=== PATIENT | male | born 1980 | race Hispanic/Latino ===

== ENCOUNTER 2024-12-18 07:36 | Emergency (ER) | payer SELFPAY ==
[2024-12-18 09:08] LABS: Specific Gravity > 1.030 (1.005-1.030); Sqamous Epithelial None Seen /HPF (None Seen); Urine Bacteria None Seen /HPF (<20); Urine Bilirubin NEGATIVE (Negative); Urine Blood Negative (Negative); Urine Clarity Clear (Clear); Urine Color Yellow (Yellow); Urine Culture Reflex Order NOT NEEDED; Urine Glucose NEGATIVE (Negative); Urine Ketones NEGATIVE (Negative); Urine Micro Reflex YN NO BILL MICROSCOPIC; Urine Mucus Slight /HPF (None Seen); Urine Nitrite NEGATIVE (Negative); Urine Protein TRACE (Negative); Urine RBC <5 /HPF (None Seen); Urine Urobilinogen 1+ (Normal); Urine WBC <5 /HPF (<5); Urine pH 6.5 (5.0-7.0)
[2024-12-18 09:44] LABS: Absolute Eosinophils 0.2 K/uL (0-0.5); Absolute Lymphocytes (CBC) 1.7 K/uL (0.7-4.9); Absolute Monocytes 0.4 K/uL (0.1-1.3); Absolute Neutrophil 3.3 K/uL (1.8-8.0); Basophils % 0.4 % (0-1.3); Eosinophils % 3.8 % (0-4.4); Hemoglobin 13.8 g/dL (13.6-17.9); Lymphocytes % 30.8 % (15.3-44.8); MCH 30.9 pg (27.0-35.0); MCHC 33.5 g/dL (32.0-36.0); MCV 92.1 fL (80-100); MPV 6.3 fL (7.6-11.3); Monocytes % 6.4 % (3.3-12.3); Neutrophils % 58.6 % (41.7-73.7); Nucleated Red Blood Cells % 0.1 % (0-0); Platelets 255 thou/uL (152-406); RBC Red Blood Cell Count 4.46 M/uL (4.33-5.43); Red Cell Distribution Width 13.2 % (12.1-15.2)
[2024-12-18 09:59] LABS: Albumin 3.5 g/dL (3.4-5.0); Albumin/Globulin Ratio 0.9 (1.1-1.8); Anion Gap 5.3 mEq/L (5.0-15.0); Bilirubin Total 0.5 mg/dL (0.2-1.0); Globulin 3.7 g/dL (2.3-3.5); Potassium 3.3 mEq/L (3.5-5.1); Protein, Total 7.2 g/dL (6.4-8.2)
--- NOTE | 2024-12-18 10:07 | ER ---
Nurse's Notes [facility] Name: Raj Puckett Age: 44 yrs Sex: Male : 1980 Arrival Date: 12/18/2024 Time: 07:36 Bed 8 Private MD: Diagnosis: Suprapubic Pain Presentation: 12/18 07:49 Chief complaint: Patient states: burning with urination x 3-4 days. Coronavirus screen: ss Client denies travel out of the [place] in the last 14 days. Ebola Screen: Patient denies exposure to infectious person. Patient denies travel to an Ebola-affected area in the 21 days before illness onset. Initial Sepsis Screen: Does the patient meet any 2 criteria? No. Patient's initial sepsis screen is negative. Does the patient have a suspected source of infection? No. Patient's initial sepsis screen is negative. Risk Assessment: Do you want to hurt yourself or someone else? Patient reports no desire to harm self or others. Onset of symptoms was December 15, 2024. 07:49 Method Of Arrival: Ambulatory ss 07:49 Acuity: HUMBLE 3 ss Triage Assessment: 07:51 General: Appears uncomfortable, Behavior is calm, cooperative. Pain: Complains of pain ss in suprapubic area Pain currently is 10 out of 10 on a pain scale. Quality of pain is described as pressure, Is continuous. Neuro: Level of Consciousness is awake, alert, obeys commands. Respiratory: Airway is patent Respiratory effort is even, unlabored, Respiratory pattern is regular, symmetrical. Derm: Skin is pink, warm \\T\\ dry. normal. Historical: - Allergies: 07:51 No Known Allergies; ss - PMHx: 07:51 Hypertensive disorder; ss - PSHx: 07:51 None; ss - Immunization history:: Client reports receiving the 2nd dose of the Covid vaccine. - Infectious Disease History:: Denies. - Social history:: Smoking status: Patient reports the use of cigarette tobacco products, smokes one-half pack cigarettes per day. Screenin:00 [facility] ED Fall Risk Assessment (Adult) History of falling in the last 3 months, aa5 including since admission No falls in past 3 months (0 pts) Confusion or Disorientation No (0 pts) Intoxicated or Sedated No (0 pts) Impaired Gait No (0 pts) Mobility Assist Device Used No (0 pt) Altered Elimination No (0 pt) Score/Fall Risk Level 0 - 2 = Low Risk Oriented to surroundings, Maintained a safe environment, Educated pt \\T\\ family on fall prevention, incl call for assistance when getting out of bed. Abuse screen: Denies threats or abuse. Nutritional screening: No deficits noted. Tuberculosis screening: No symptoms or risk factors identified. Assessment: 07:55 General: Appears comfortable, Behavior is calm, cooperative. Pain: Complains of pain in aa5 suprapubic area Pain currently is 8 out of 10 on a pain scale. Quality of pain is described as sharp, Pain began "months ago" Is intermittent. Neuro: Level of Consciousness is awake, alert, obeys commands, Oriented to person, place, time, situation. Cardiovascular: Patient's skin is warm and dry. Respiratory: Airway is patent Respiratory effort is even, unlabored, Respiratory pattern is regular, symmetrical. GI: Abdomen is round non-distended, Bowel sounds present X 4 quads. Abd is soft and non tender X 4 quads. : Reports burning with urination, since 3-4 days ago. EENT: No signs and/or symptoms were reported regarding the EENT system. Derm: Skin is pink, warm \\T\\ dry. Musculoskeletal: Range of motion: intact in all extremities. 08:13 Reassessment: Patient is alert, oriented x 3, equal unlabored respirations, skin aa5 warm/dry/pink. Pt sitting up in bed drinking water, states he is unable to provide urine specimen at this time, will notify nurse when he is able to. . 10:25 Reassessment: Patient is alert, oriented x 3, equal unlabored respirations, skin aa5 warm/dry/pink. Vital Signs: 07:49 BP 135 / 98; Pulse 74; Resp 16; Temp 98.3; Pulse Ox 100% on R/A; Weight 95.25 kg; ss Height 5 ft. 8 in. ; Pain 10/10; 10:10 BP 142 / 99; Pulse 70; Resp 18 S; Pulse Ox 100% on R/A; aa5 07:49 Body Mass Index 31.93 (95.25 kg, 172.72 cm) 07:49 Pain Scale: Adult ED Course: 07:42 Patient arrived in ED. sj2 07:45 Maura Crowe, RN is Primary Nurse. aa5 07:50 Nish Mcmanus MD is Attending Physician. ec2 07:51 Triage completed. ss 07:51 Arm band placed on left wrist. ss 08:00 Patient has correct armband on for positive identification. Bed in low position. Call aa5 light in reach. Side rails up X 1. 08:59 No provider procedures requiring assistance completed. aa5 09:35 Initial lab(s) drawn, by me, sent to lab. Inserted saline lock: 20 gauge in right aa5 antecubital area, using aseptic technique. Blood collected. Flushed with 10 mL NS. 10:25 IV discontinued, intact, bleeding controlled, No redness/swelling at site. Pressure aa5 dressing applied. Administered Medications: 10:25 Drug: Potassium Chloride PO 40 mEq PO once Route: PO; aa5 10:25 Follow up: Response: Medication administered at discharge. aa5 10:25 Drug: Phenazopyridine PO 200 mg PO once Route: PO; aa5 10:25 Follow up: Response: Medication administered at discharge. aa5 Medication: 08:17 VIS not applicable for this client. aa5 Outcome: 10:06 Discharge ordered by . ec2 10:25 Discharged to home ambulatory, with family, aa5 10:25 Condition: stable 10:25 Discharge instructions given to patient, Instructed on discharge instructions, follow up and referral plans. medication usage, Demonstrated understanding of instructions, follow-up care, medications, Prescriptions given X 1, 10:26 Patient left the ED. aa5 Signatures: Maura Crowe RN RN aa5 Janina Burdick RN RN Nish Mcmanus MD MD ec2 Roger Quinteros 2
--- NOTE | 2024-12-18 10:07 | EDPHYS ---
Physician Documentation [facility] Name: Raj Puckett Age: 44 yrs Sex: Male : 1980 Arrival Date: 12/18/2024 Time: 07:36 Bed 8 Private MD: ED Physician Nish Mcmanus HPI: 12/18 07:51 This 44 yrs old Male presents to ER via Unassigned with complaints of Pain ec2 With Urination, Abdominal Pain. 07:51 Patient arrives today for dysuria. Patient reports has been experiencing some dysuria ec2 throughout the past couple of days, reports urinary discomfort with urination, increased urinary frequency as well. Reports abdominal pain which is chronic and been ongoing for approximately 6 to 8 months.. Historical: - Allergies: 07:51 No Known Allergies; ss - PMHx: 07:51 Hypertensive disorder; ss - PSHx: 07:51 None; ss - Immunization history:: Client reports receiving the 2nd dose of the Covid vaccine. - Infectious Disease History:: Denies. - Social history:: Smoking status: Patient reports the use of cigarette tobacco products, smokes one-half pack cigarettes per day. ROS: 07:51 Constitutional: as per hpi ec2 Exam: 07:51 Constitutional: GEN: NAD Head: atraumatic Eyes: EOMI Ears: External ears are ec2 normal. CV: regular rate LUNGS: no respiratory distress ABD: non-distended, soft, nontender, guarding, not rigid SKIN: no evidence of rashes MSK: no evidence of trauma Vital Signs: 07:49 BP 135 / 98; Pulse 74; Resp 16; Temp 98.3; Pulse Ox 100% on R/A; Weight 95.25 kg; ss Height 5 ft. 8 in. ; Pain 10/10; 10:10 BP 142 / 99; Pulse 70; Resp 18 S; Pulse Ox 100% on R/A; aa5 07:49 Body Mass Index 31.93 (95.25 kg, 172.72 cm) ss 07:49 Pain Scale: Adult ss MDM: 07:50 Medical Screening Exam initiated ec2 07:51 Data reviewed: vital signs, nurses notes. ED course: Patient arrives today for dysuria. ec2 Examination yields abdominal findings above. Will send UA, suspect UTI, doubt appendicitis or cholecystitis.. 10:05 ED course: Labs show slight hypokalemia, CBC is reassuring. We have the patient ec2 potassium,. The patient Pyridium for suprapubic pain and have the patient follow-up PCP. Doubt process such as appendicitis or cholecystitis given duration of symptoms, additionally will forego CT imaging at this time. Will discharge home. Return precaution given.. 12/18 07:50 Order name: UAM; Complete Time: 09:25 ec2 12/18 09:25 Order name: CBC with Diff; Complete Time: 10:04 ec2 12/18 09:25 Order name: CMP; Complete Time: 10:04 ec2 12/18 07:50 Order name: Misc. Order: PO Fluids; Complete Time: 07:57 ec2 12/18 09:25 Order name: IV; Complete Time: 09:38 ec2 Administered Medications: 10:25 Drug: Potassium Chloride PO 40 mEq PO once Route: PO; aa5 10:25 Follow up: Response: Medication administered at discharge. aa5 10:25 Drug: Phenazopyridine PO 200 mg PO once Route: PO; aa5 10:25 Follow up: Response: Medication administered at discharge. aa5 Disposition Summary: 12/18/24 10:06 Discharge Ordered Notes: Location: Home ec2 Condition: Stable ec2 Diagnosis - Suprapubic Pain ec2 Followup: ec2 - With: Private Physician - When: - Reason: Re-evaluation by your physician Discharge Instructions: - Discharge Summary Sheet ec2 - Abdominal Pain, Adult, [id number] ec2 Forms: - Medication Reconciliation Form ec2 - Antibiotic Education ec2 - Prescription Opioid Use ec2 - Patient Portal Instructions ec2 - Leadership Thank You Letter ec2 Prescriptions: - Pyridium 200 mg Oral Tablet - take 1 tablet ORAL route every 8 hours for 3 days; 9 tablet; Refills: 0, ec2 Product Selection Permitted Signatures: Dispatcher [employer] Maura Holcomb RN RN aa5 Janina Burdick RN RN Nish Mcmanus MD MD ec2
[2024-12-18] MEDS ORDERED: POTASSIUM CL SA 10 MEQ TAB PO ONE (10:11)
[2024-12-18] MEDS ORDERED: PHENAZOPYRIDINE 100MG TAB PO ONE (10:11)
[2024-12-18 10:42] VITALS: O2SAT 100
[2024-12-18 10:44] VITALS: BP 135/98; TEMP 98.3
== END 2024-12-18 10:26 | disposition home or self-care (01) ==
LOC: ER 07:36 → EDBD 07:36 → ER 10:26
DX: R10.9 Unspecified abdominal pain (principal); R30.0 Dysuria
CPT/HCPCS: 36415; 80053; 81001; 85025; 99284